=== PATIENT | male | born 1940 | race Caucasian/White ===

== ENCOUNTER → 2017-01-30 | Outpatient (CLI) | payer BC, OTHER ==
[2017-01-30 09:29] LABS: BASOPHILS # (AUTO) 0.02 10*3/UL; BASOPHILS % (AUTO) 0.3 % (0-1); EOSINOPHILS # (AUTO) 0.13 10*3/UL; EOSINOPHILS % (AUTO) 2.1 % (0-8); HEMATOCRIT 48.1 % (42.0-52.0); HEMOGLOBIN 16.1 g/dL (14.0-18.0); LYMPHOCYTES # (AUTO) 1.83 10*3/uL; MEAN CORPUSCULAR HEMOGLOBIN 29.3 PG (27-31); MEAN CORPUSCULAR HGB CONC 33.5 g/dL (33-37); MEAN CORPUSCULAR VOLUME 87.5 FL (80-90); MONOCYTES # (AUTO) 0.45 10*3/UL (0.3-0.8); MONOCYTES % (AUTO) 7.3 % (5-15); NEUTROPHILS # (AUTO) 3.71 10*3/UL; NEUTROPHILS % (AUTO) 60.3 % (50-80)
[2017-01-30 09:30] LABS: CREATININE, URINE 104.2 MG/DL (15-500)
[2017-01-30 09:31] LABS: PLATELET MORPHOLOGY COMMENT NORMAL MORPHOLOGY (NORM); RBC MORPHOLOGY COMMENT NORMAL MORPHOLOGY (NORM); WBC MORPHOLOGY COMMENT NORMAL MORPHOLOGY (NORM)
[2017-01-30 09:43] LABS: BUN/CREATININE RATIO 17.77 (6-20); CALCIUM 8.8 mg/dL (8.7-10.7); CHOL/HDL RATIO 3.86 RATIO (0-4.0); LDL CHOLESTEROL,CALCULATED 99.8 mg/dL
[2017-01-30 09:45] LABS: HEMOGLOBIN A1C 6.99 % (4.2-6.0)
== END ==
LOC: LAB 08:59
PROVIDERS: ATTEND Internal Medicine
DX: E11.9 Type 2 diabetes mellitus without complications (principal); E78.5 Hyperlipidemia, unspecified; K21.9 Gastro-esophageal reflux disease without esophagitis; E66.9 Obesity, unspecified; N52.9 Male erectile dysfunction, unspecified; Z12.5 Encounter for screening for malignant neoplasm of prostate
CPT/HCPCS: 36415; 80053; 80061; 82043; 82550; 83036; 84443; 85025; G0103

== ENCOUNTER → 2017-01-31 | Outpatient (CLI) | payer BC, OTHER ==
--- NOTE | 2017-01-31 16:47 | DI ---
AP PELVIS and BILATERAL HIPS, 01/31/2017 3:38 PM : Clinical History: Left hip pain. Previous Exam: None at this facility. There is no soft tissue abnormality. The bony structures of the pelvis are normal except for acetabul ar over coverage along the superior lateral margin of each acetabula. 2 views of each hip show mild d ysplastic "bumps". There are cystic changes in the left femoral head in the superior lateral margin o f the acetabulum. 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 No s ignificant degenerative arthritic change has developed in the right hip joint. Degenerative changes a re noted in the symphysis pubis. Readin. 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 2. No significant arthritic changes noted in the right hip.
== END ==
LOC: RAD 15:34
PROVIDERS: ATTEND Internal Medicine
DX: M25.552 Pain in left hip (principal); M16.12 Unilateral primary osteoarthritis, left hip; M25.852 Other specified joint disorders, left hip
CPT/HCPCS: 73521

== ENCOUNTER → 2017-04-04 | Outpatient (CLI) | payer BC, OTHER | LOC: LAB 14:23 | PROVIDERS: ATTEND Orthopaedic Surgery Adult Reconstructive Orthopaedic Surgery | DX: Z79.01 Long term (current) use of anticoagulants (principal); M16.12 Unilateral primary osteoarthritis, left hip | CPT/HCPCS: 36415; 85610 ==

== ENCOUNTER → 2017-04-09 | Outpatient (CLI) | payer BC, OTHER | LOC: LAB 13:32 | PROVIDERS: ATTEND Orthopaedic Surgery Adult Reconstructive Orthopaedic Surgery | DX: M16.12 Unilateral primary osteoarthritis, left hip (principal); Z79.01 Long term (current) use of anticoagulants | CPT/HCPCS: 36415; 85610 ==

== ENCOUNTER 2017-04-11 18:41 | Emergency (ER) | payer BC, OTHER ==
[2017-04-11] MEDS ORDERED: MORPHINE SULFATE 2 MG/1 ML IVP ONE (18:49)
[2017-04-11] MEDS ORDERED: ONDANSETRON 4 MG/2 ML VIAL IVP ONE (18:49)
[2017-04-11] MEDS ORDERED: Sodium Chloride 0.9% 1,000 ML PRIMARY IV ONE (18:49)
--- NOTE | 2017-04-11 18:57 | PDOC ---
Fall HPI - General Chief Complaint: Fall Stated Complaint: Fall, hip surgery 4 weeks ago Date Seen by Provider: 04/11/17 Time Seen by Provider: 18:51 Source: POSITIVE: Patient, Spouse Exam Limitations: POSITIVE: No limitations Nurse's Notes Reviewed & Considered: Yes - History of Present Illness Initial Comments: Patient was walking on his driveway when he experienced a fall resulting in abrasions on his face, left hip pain, and left thigh pain. Patient is presently on blood thinners, and had hip replacement surgery for his left hip 4 weeks ago. He is unsure of what made him fall. Patient is a poor historian. Have you received a tetanus shot in the past 10 years?: Unknown Body Location Affected: REPORTS: Head, Lower Extremity (L) Timing: REPORTS: Abrupt Duration: 1/2 hour Severity: Moderate Location of Fall: REPORTS: Home Quality: REPORTS: "Pain" Associated Symptoms: REPORTS: Blow to Head Location of Injuries / Pain: REPORTS: Left, Face, Hip, Thigh Any Prior Injuries Related to Current Complaint?: No - Patient Home Medications Home Medications: Home Medications Ibuprofen 1 tab PO QAM #0 tab 07/27/16 Atorvastatin Calcium [Lipitor] 1 tab PO QHS #90 tab 01/31/17 Metformin HCl [Metformin Hcl Er] 1,000 mg PO QD #180 tab-cap 01/31/17 Venlafaxine HCl [Venlafaxine Hcl Er] 1 cap PO DAILY #90 cap 01/31/17 Warfarin Sodium [Coumadin] 5 mg PO DAILY 04/11/17 - Patient Allergies Allergies/Adverse Reactions: Allergies Allergy/AdvReac Type Severity Reaction Status Date / Time Antihistamines - Alkylamine AdvReac causes Verified 04/11/17 18:56 prostate problems Past Medical History - heen HEENT History: Dentures/Partials Cardiovascular History: Hyperlipidemia Respiratory History: Denies History Gastrointestinal History: GERD Genitourinary History: Denies History Endocrine History: Denies History Musculoskeletal History: Arthritis Neurological History: Denies History Blood Disorders: Denies History Psychiatric History: Depression Cancer History: Denies History Alcohol Use: None Substance Use Type: None ROS - Limitations ROS Limitations: No Limitations Constitution: REPORTS: Denies Symptoms Cardiovascular: REPORTS: Denies Cardiac Symptoms Respiratory: REPORTS: Denies Resp Symptoms Neurological: REPORTS: Denies Neuro Symptoms Gastrointestinal: REPORTS: Denies GI Symptoms Endocrine: REPORTS: Denies Symptoms Musculoskeletal: REPORTS: Joint Pain Genitourinary: REPORTS: Denies Symptoms Eyes: REPORTS: Denies Symptoms ENT: REPORTS: Denies Symptoms Skin: REPORTS: Other (Abrasions on face) Lympathic: REPORTS: Denies Lympathic Symptoms Immunologic: POSITIVE: Denies Symptoms Psychiatric: POSITIVE: Denies Psych Symptoms Fall Physical Exam - General Appearance General Appearance: POSITIVE: Alert, Cooperative, No Acute Distress - HEENT HEENT: POSITIVE: Eyes Inspection Nml, Ears Inspection Nml, Nose Inspection Nml, Oral/Dental Inspect. Nml, Pharynx Inspect. Nml, PERRL, EOMI, Other (Abrasions on right forehead and on nose) - Pupil Size Pupil Size: 5 mm: Bilateral - Neck Neck: POSITIVE: Non Tender, Painless ROM - Respiratory / CVS Respiratory / CVS: POSITIVE: Chest Non Tender, No Ecchymosis, Breath Sounds Normal, No Respiratory Distress, Heart Sounds Normal, Regular Rate/Rhythm Peripheral Pulses: Dorsalis-pedis (R): 3+, Dorsalis-pedis (L): 3+ - Abdomen Abdomen: Soft: (All Quadrants), Normal Bowel Sounds: (All Quadrants), Denies Tenderness: (All Quadrants), No Splenomegaly: (All Quadrants), No Hepatomegaly: (All Quadrants), No Guarding: (All Quadrants), No Rebound: (All Quadrants), No Palpable Pulse: (All Quadrants), No Palpabale Mass: (All Quadrants), No Distention: (All Quadrants), No Rigidity: (All Quadrants) - Neuro / Psych Neuro / Psych: POSITIVE: Oriented X3, custom miller Normal As Tested, Motor Normal, Sensation Normal, Mood Appropriate, Affect Appropriate - Skin Skin: POSITIVE: Intact, Warm, Dry - Back Back: POSITIVE: Normal Inspection, No CVA Tenderness, Non Tender, Painless ROM, No Vertebral Tenderness - Extremities Extremity Assessment: Non-Tender: (RUE), (LUE), (RLE), Normal ROM: (RUE), (LUE) , (RLE), No Edema: (RUE), (LUE), (RLE), Normal Inspection: (RUE), (LUE), (RLE), No Swelling: (RUE), (LUE), (RLE), Pelvis Stable: (ALL), Tender: (LLE), Abnormal ROM: (LLE), Swelling: (LLE), Bony Point Tenderness: (LLE) (over greater trochanter left leg) Joint Exam: POSITIVE: Limited ROM (Secondary to pain), Painful Fall Progress - Results Reviewed by me Xrays/CTs/US Reviewed by me: Yes Discussed with Radiologist: Yes Lab Results Reviewed: Yes Lab Results:: Laboratory Results 04/11/17 Range/Units 18:55 WBC 7.51 (4.8-10.8) 10^3/uL RBC 5.09 (4.70-6.10) 10^6/uL Hgb 14.9 (14.0-18.0) g/dL Hct 44.5 (42.0-52.0) % MCV 87.4 (80-90) FL MCH 29.3 (27-31) PG MCHC 33.5 (33-37) g/dL RDW Std Deviation 42.3 (39-50) fL RDW Coeff of Dao 13.5 (11.5-14.5) % Plt Count 399 H (140-350) 10*3/uL MPV 10.3 (7.4-12.2) FL Immature Gran % (Auto) 0.3 (0-5) % Neut % (Auto) 54.3 (50-80) % Lymph % (Auto) 32.8 (10-50) % Estill % (Auto) 10.7 (5-15) % Eos % (Auto) 1.6 (0-8) % Baso % (Auto) 0.3 (0-1) % Immature Gran # (Auto) 0.02 10*3/UL Neut # (Auto) 4.09 10*3/UL Lymph # (Auto) 2.46 10*3/uL [place] # (Auto) 0.80 (0.3-0.8) 10*3/UL Eos # (Auto) 0.12 10*3/UL Baso # (Auto) 0.02 10*3/UL WBC Morphology Comment Normal morphology (NORM) Plt Morphology Comment Normal morphology (NORM) RBC Morph Comment Normal morphology (NORM) PT 14.7 H (9.7-11.4) secs INR 1.42 (0.00-5.90) N/A Sodium 138 (135-145) meq/L Potassium 4.2 (3.8-5.2) meq/L Chloride 100 (98-112) meq/L Carbon Dioxide 26 (23-33) meq/L Anion Gap 12 (5-20) BUN 22 (7-22) mg/dL Creatinine 0.9 (0.70-1.50) mg/dL Estimated GFR (>60 ml/min/1.73m(2)) BUN/Creatinine Ratio 24.44 H (6-20) Glucose 100 (78-110) mg/dL Calculated Osmolality 288.0 (267-292) mOsm/kg Calcium 8.9 (8.7-10.7) mg/dL Magnesium 1.8 (1.6-2.4) mg/dL Total Bilirubin 0.5 (0.3-1.2) mg/dL AST 35 (21-57) IU/L ALT 35 (21-72) IU/L Alkaline Phosphatase 96 (38-126) IU/L NT-Pro-B Natriuret Pep 132 (0-450) PG/ML Total Protein 7.3 (6.1-8.0) g/dL Albumin 4.0 (3.5-4.8) g/dL Globulin 3.2 (2.50-4.10) g/dL Albumin/Globulin Ratio 1.20 L (1.3-2.0) mg/g - Patient's Progress Pain Medication Addressed: POSITIVE: Yes Status: POSITIVE: Improved MDM / ED Course: Patient was evaluated, blood drawn and sent to the lab for studies, radiographic examinations were taken, IV was started. Findings: INR is 1.4 to, CBC shows a slight anemia with normal white count. Comprehensive metabolic panel is unremarkable. CT scan of his head shows no acute intracranial abnormalities, x-ray of his left hip shows a greater trochanter fracture. Assessment: Hip fracture, secondary to fall. Plan: Discharge home, Percocet for pain, follow-up with his surgeon in [place]. He is to use a walker Freeney ambulation with only touchdown of his foot and no weightbearing. Did discuss patient with Dr. Rebecca Avila and he agrees with this plan. Patient was offered admission for pain control but declined wishing rather to return home. - Consult Counseled: POSITIVE: Patient, Family, RE: Lab Results, RE: Radiology Results, RE : DX, RE: Need for F/U Patient Care Time - Estimated PCT Patient Care Time (In Minutes): 45 Vital Signs - Recent Vital Signs Vital Signs: Vital Signs (Last 8 hours) Temp Pulse Resp BP Pulse Ox 04/11/17 18:41 97.8 F 94 18 144/85 94 - VS Reviewed Vital Signs Reviewed: Yes Discharge Clinical Impression: Fracture of hip Discharge Disposition: Discharged to Home Condition: Stable Patient Instructions Given at Discharge: Hip Fracture (ED)
[2017-04-11 19:10] LABS: BASOPHILS # (AUTO) 0.02 10*3/UL; BASOPHILS % (AUTO) 0.3 % (0-1); EOSINOPHILS # (AUTO) 0.12 10*3/UL; EOSINOPHILS % (AUTO) 1.6 % (0-8); HEMATOCRIT 44.5 % (42.0-52.0); HEMOGLOBIN 14.9 g/dL (14.0-18.0); LYMPHOCYTES # (AUTO) 2.46 10*3/uL; MEAN CORPUSCULAR HEMOGLOBIN 29.3 PG (27-31); MEAN CORPUSCULAR HGB CONC 33.5 g/dL (33-37); MEAN CORPUSCULAR VOLUME 87.4 FL (80-90); MEAN PLATELET VOLUME 10.3 FL (7.4-12.2); MONOCYTES % (AUTO) 10.7 % (5-15); NEUTROPHILS # (AUTO) 4.09 10*3/UL; NEUTROPHILS % (AUTO) 54.3 % (50-80); RED BLOOD COUNT 5.09 10^6/uL (4.70-6.10)
--- NOTE | 2017-04-11 19:13 | EKG ---
[address] [address] Measurements Intervals [place] Rate: 92 P: 39 IA: 153 QRS: -56 QRSD: 126 T: 46 QT: 361 QTc: 411 Interpretive Statements SINUS RHYTHM LEFT ANTERIOR FASCICULAR BLOCK [QRS AXIS <= -45, QR IN I, RS IN II] INTERPRETATION BASED ON A DEFAULT AGE OF 40 YEARS No previous ECG available for comparison Electronically Signed On 04-12-17 13:23:04 MDT by Valdo Alcantara MD [email or web address]
[2017-04-11 19:14] LABS: PLATELET MORPHOLOGY COMMENT NORMAL MORPHOLOGY (NORM); RBC MORPHOLOGY COMMENT NORMAL MORPHOLOGY (NORM); WBC MORPHOLOGY COMMENT NORMAL MORPHOLOGY (NORM)
[2017-04-11 19:20] LABS: BUN/CREATININE RATIO 24.44 (6-20); CALCIUM 8.9 mg/dL (8.7-10.7); MAGNESIUM 1.8 mg/dL (1.6-2.4)
[2017-04-11 19:28] VITALS: RESP 18; TEMP 97.8
[2017-04-11] MEDS ORDERED: oxyCODONE-ACETAMINOPHEN 5-325 TAB PO ONE ×2 (21:30→21:50)
[2017-04-11] MEDS ORDERED: oxyCODONE-ACETAMINOPHEN 5-325 TAB PO SCH (22:00)
--- NOTE | 2017-04-11 22:25 | DI ---
CT HEAD W/O CONTRAST,04/11/2017 6:49 PM: Clinical History: Fall in a patient on blood thinners. Previous Exam: None at this facility. Findings: Multiple helically acquired CT images are obtained through the brain without contrast, and demonstrat e diffuse age-related volume loss. There is no mass, hemorrhage or midline shift. 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 There are a few peripheral vascular calcifications noted. The paranasal sinuses are unremarkable. The intraorbital structures are also unremarkable. Impression: Mild diffuse age-related volume loss otherwise unremarkable.
--- NOTE | 2017-04-11 22:25 | DI ---
XR HIP COMPLETE MIN 2VW U/L,04/11/2017 6:49 PM: Clinical History: Fall with left hip pain. Previous Exam: January 31, 2017 Findings: Multiple views of the left hip are obtained, and demonstrate a fracture of the left greater trochant er. Patient is status post left total hip arthroplasty. There is a cerclage wire around the proximal left femur. The pelvis is unremarkable. There are degenerative changes of the right hip. Degenerative changes of lumbar spine and symphysis pubis are noted. Impression: Slightly displaced fracture of the left greater trochanter.
== END 2017-04-11 22:10 | disposition home or self-care (01) ==
LOC: ER 18:41
DX: S72.092A Other fracture of head and neck of left femur, initial encounter for closed fracture (principal); S00.81XA Abrasion of other part of head, initial encounter; R51 Headache; M79.652 Pain in left thigh; W18.39XA Other fall on same level, initial encounter
CPT/HCPCS: 70450; 73502; 80053; 83735; 83880; 85025; 85610; 93005; 93010; 96374; 96375; 99284; J2270; J2405; J7030

== ENCOUNTER 2018-11-26 05:46 | Inpatient (IN) ==
[2018-11-26] MEDS ORDERED: LIDOCAINE W/ SODIUM BICARB 0.5 ML SYR SUBD ONE (06:00)
[2018-11-26] MEDS ORDERED: Lactated Ringers 1,000 ML PRIMARY IV SCH ×2 (06:00→06:45)
[2018-11-26] MEDS ORDERED: ceFAZolin Inj 2gm (Premix) 2 GM/50 ML BAG IV ONE ×2 (06:00→06:02)
[2018-11-26] MEDS ORDERED: Nasal Sanitizer POPSWAB ampule 3 AMP (Nozin) PREOP DOSE ENOS SCH (06:00)
[2018-11-26] MEDS ORDERED: Lactated Ringers 1,000 ML PRIMARY IV ONE ×2 (06:02→08:29)
[2018-11-26] MEDS ORDERED: LIDOCAINE W/ SODIUM BICARB 0.5 ML SYR ONE (06:02)
[2018-11-26 06:05] LABS: BILIRUBIN,URINE NEGATIVE (NEG); CLARITY,URINE CLEAR (CLEAR); COLOR,URINE YELLOW (Y); GLUCOSE, URINE (UA) NEGATIVE (NEG); OCCULT BLOOD,URINE NEGATIVE (NEG); PROTEIN,URINE NEGATIVE (NEG); UROBILINOGEN,URINE 0.2 EU/dL (0.2)
[2018-11-26 06:08] LABS: URINE SAMPLE TYPE CLEAN CATCH URINE
[2018-11-26] MEDS ORDERED: fentaNYL Inj 100 MCG/2 ML VIAL IVP PRN (06:38)
[2018-11-26] MEDS ORDERED: HYDROmorphone 2 MG/1 ML IVP PRN (06:38)
[2018-11-26] MEDS ORDERED: Ondansetron ODT Tab 8 MG TAB PO PRN ×2 (06:38→12:54)
[2018-11-26] MEDS ORDERED: ONDANSETRON 4 MG/2 ML VIAL IVP PRN ×2 (06:38→12:54)
[2018-11-26] MEDS ORDERED: LIDOCAINE W/ SODIUM BICARB 0.5 ML SYR SUBD PRN (06:38)
[2018-11-26] MEDS ORDERED: ATROPINE SULFATE 0.4 MG/1 ML VIAL IVP PRN (06:38)
--- NOTE | 2018-11-26 06:39 | CRNA.PROGR ---
Anesthesia Recovery Phase I - Post Anesthesia Evaluation Patient's Condition on Arrival in Phase I: Stable Patient's Condition on Arrival in Phase II: Stable Pain Level: 0
--- NOTE | 2018-11-26 06:39 | CRNA.PROGR ---
Post Anesthesia Phase II - Post Anesthesia Phase II Patient Stable and Discharged To: Med/Surg Care Assumed By Surgeon: Westley Oreilly MD Temperature: 97.4 F Pulse Rate: 77 Respiratory Rate: 12 Blood Pressure: 109/58 Pulse Ox: 92 Total Edson Score at Discharge: 9 Post Anesthesia Discharge Criteria Met: Yes
--- NOTE | 2018-11-26 06:39 | CRNA.PROGR ---
Anesthesia Time - Procedure/Recovery Time Start Date: 11/26/18 End Date: 11/26/18 Anesthesia : Time In: 07:38 Anesthesia : Time Out: 11:27 Anesthesia : Total Time: 229 - Block Time Start Date: 11/26/18 End Date: 11/26/18 PreOp Block : Time In: 07:15 PreOp Block : Time Out: 07:24 PreOp Block : Total Time: 9 - Total Anesthesia Time Total Anesthesia Time (minutes): 238 - Other Weight: 112.491 kg Height: 5 ft 11 in Body Mass Index (BMI): 34.5 Physical Status: P2 Anesthesia Type: Spinal Block
[2018-11-26] MEDS ORDERED: fentaNYL Inj 250 MCG/5 ML VIAL ONE (06:55)
[2018-11-26] MEDS ORDERED: MIDAZOLAM 5 MG/1 ML ONE (06:55)
[2018-11-26] MEDS ORDERED: PROPOFOL 10 MG/1 ML (200 MG/20 ML) VIAL IV ONE (06:56)
[2018-11-26] MEDS ORDERED: KETAMINE HCL 100 MG/2 ML SYRINGE IV ONE (07:04)
[2018-11-26] MEDS ORDERED: ROCURONIUM 10 MG/1 ML - 5 ML VIAL IVP ONE (07:05)
[2018-11-26] MEDS ORDERED: DEXAMETHASONE PF 10 MG/1 ML VIAL ONE (07:14)
[2018-11-26] MEDS ORDERED: Mepivacaine Inj 1.5% 450 MG/30 ML VIAL ONE (07:14)
[2018-11-26] MEDS ORDERED: BUPIVACAINE 0.5% W/EPI MPF -30 ML VIAL IV ONE (07:14)
[2018-11-26] MEDS ORDERED: MORPHINE SULFATE/PF 10 MG/10 ML AMPULE ONE (07:19)
[2018-11-26] MEDS ORDERED: TRANEXAMIC ACID 1,000 MG / 10 ML VIAL ONE (07:19)
[2018-11-26] MEDS ORDERED: EPINEPHrine Inj (1:1,000) 1 mg/ml amp ONE (07:19)
[2018-11-26] MEDS ORDERED: BACITRACIN 50,000 UNIT VIAL IRRIG ONE (07:36)
[2018-11-26] MEDS ORDERED: Sodium Chloride 0.9% vial 30 ML ONE ×2 (07:36→08:22)
[2018-11-26] MEDS ORDERED: ePHEDrine Inj 50 MG/ML AMP ONE (07:53)
[2018-11-26] MEDS ORDERED: Ketorolac Inj 30 MG, Morphine Inj (Ortho Cocktail) 5 MG, BUPivacaine Inj 0.25% PF 150 MG SPLASH ONE ×3 (07:54)
[2018-11-26] MEDS ORDERED: Hetastarch 6% + NS 500 ML IV ONE (07:55)
[2018-11-26] MEDS ORDERED: Sodium Chloride 0.9% 500 ML ONE (08:01)
[2018-11-26] MEDS ORDERED: BUPivacaine Liposome/PF (Exparel) Inj 20ml vial INFIL ONE (08:23)
[2018-11-26] MEDS ORDERED: Propofol 1,000 MG/100 ML VIAL IV ONE (08:28)
--- NOTE | 2018-11-26 08:41 | CRNA.PROCE ---
Central Neuraxis Block Placemt - - Safety Measures: Time Out Taken, Site Verified - - Type of Block: Subarachnoid Reason for Block: Surgical Moniters Used During Block: EKG, SPO2, NIBP Sedation Used - Enter Amount Used in Comment Field: Midazolam (mg): Yes (4 mg), Fentanyl (mcg): Yes (50) Positioning: Sitting Skin Prep Used: ChloroPrep (Twice) Draped: Yes Skin Infiltration - Enter Amount Used in Comment Field: 1% Xylocaine (mL): Yes (1.0) Introducer User: None Spinal Needle Used: 22 Juliette 80 mm (1 pass. No parasthesia's) Local Anesthetic - Enter Amount Used in Comment Field: 0.75 % Bupivacaine with Dextrose (ml): Yes (2 ml) Additive Used - Enter Amount Used in Comment Field: Epinephrine 1:1000 Needle Rinse (mL): Yes (needle rinse only) - - Additional Details: Right lateral( right down) post sab placed. RN placed harrington with him lateral. To OR 1 . Anesthesia Time - Other Weight: 112.491 kg Height: 5 ft 11 in Body Mass Index (BMI): 34.5
--- NOTE | 2018-11-26 11:23 | ORTHO.OP ---
Surgery Date: 11/26/18 Preoperative Diagnosis: Osteoarthritis right knee Postoperative Diagnosis: Same Procedure: Right total knee arthroplasty using the Beatriz persona knee with ultra congruent tray Surgeon: Westley Oreilly MD Operator Assistant I Cementing: BARBARA Phillips Anesthesia Provider: Marta Burton CRNA Anesthesia Type: Regional Estimated Blood Loss (mL): 200 Fluids: 1800 mL crystalloid 500 mL Hespan Complications: None. EBL 200 mL. Total tourniquet time 2 hours. Operative Summary: Taken to recovery in stable condition.
--- NOTE | 2018-11-26 12:36 | DI ---
XR KNEE 1 OR 2 VWS 11/26/2018 10:53 AM [place]ORY: [facility] [place] [facility] [place]Post op TKA Comparison: 03/13/2018. Findings: Portable AP and crosstable lateral views of the right knee are submitted. The patient is s tatus post total knee arthroplasty. Longitudinal lucency extends through the distal femoral diaphysis toward the prosthesis. There is mild perihardware lucency along the lateral femoral condyle prosthes is on the AP projection and the distal portion of the tibial prosthesis on the lateral projection; co rrelate with desired surgical outcome. A drain projects over the distribution of the suprapatellar jordan int space. Surgical costa are noted along the anterior skin line. There is no acute fracture or dis location. Atheromatous vascular calcifications are present, most notable of the popliteal region wher e there may be a popliteal artery aneurysm. There is early distal quadriceps enthesopathy. There is g as in the soft tissues, an expected finding in the immediate postoperative timeframe. Metallic densit ies projects over the lower extremity on the frontal projection only. Impression: Status post total knee arthroplasty. Correlate with desired surgical outcome.
[2018-11-26] MEDS ORDERED: BISACODYL 5 MG TABLET PO PRN (12:54)
[2018-11-26] MEDS ORDERED: D5-1/2NS + 20mEq KCL 1,000 ML PRIMARY IV SCH (12:54)
[2018-11-26] MEDS ORDERED: diphenhydrAMINE 25 MG CAPSULE PO PRN (12:54)
[2018-11-26] MEDS ORDERED: ACETAMINOPHEN 325 MG TABLET PO PRN (12:54)
[2018-11-26] MEDS ORDERED: MAG HYDROX/AL HYDROX/SIMETH 30 ML SUSP PO PRN (12:54)
[2018-11-26] MEDS ORDERED: Prochlorperazine Tab 10 MG TAB PO PRN (12:54)
[2018-11-26] MEDS ORDERED: BISACODYL 10 MG SUPPOSITORY RECTAL PRN (12:54)
[2018-11-26] MEDS ORDERED: ROSUVASTATIN CALCIUM 5 MG PO SCH (12:54)
[2018-11-26] MEDS ORDERED: MORPHINE SULFATE 2 MG/1 ML IVP PRN (12:54)
[2018-11-26] MEDS ORDERED: CALCIUM CARBONATE 500 MG (TUMS) CHEWABLE TABLET PO PRN (12:54)
[2018-11-26] MEDS ORDERED: MORPHINE SULFATE 2 MG/1 ML IV PRN (13:35)
[2018-11-26] MEDS ORDERED: MORPHINE SULFATE 4 MG/1 ML IV PRN (13:36)
[2018-11-26] MEDS ORDERED: MORPHINE SULFATE 10 MG/1 ML IV PRN (13:36)
[2018-11-26] MEDS: oxyCODONE/APAP 7.5/325 Tab 1 TAB TAB PO PRN ×3 (13:55→21:41)
--- NOTE | 2018-11-26 14:38 | CONSULT ---
Consult Note - Consult Reason for Consult: PostOp Consulation : Ortho Primary Care Provider: Ceferino Kapoor MD HPI - History of Present Illness History of Present Illness: This very nice 78-year-old gentleman with history of diabetes and depression had a right total knee replacement elective surgery hospitalists service was consult did for medical management of the diabetes. Patient has no chest pain nausea vomiting and is doing well postop and his room with his son and Past Medical History Medical History: Depression, diabetes Tobacco Use: Former Smoker In the Past 12 Months, Have Used or Abuse Any of the Following Substance: None Alcohol Use: Rarely Review of Systems - Review of Systems All Systems: Reviewed & No Additional Complaints Except as Stated - Cardiovascular Cardiovascular: DENIES: Negative System Review, Chest Pain, Edema, Syncope, Palpitations, Orthopnea, Paroxysmal Nocturnal Dyspnea, Other, See HPI - Gastrointestinal Gastrointestinal / Abdominal: DENIES: Negative System Review, Nausea, Vomiting, Diarrhea, Constipation, Abdominal Pain, Bloody Stool, Poor Appetite, Heartburn, Regurgitation, Bloating, Lactose Intolerance, Melena, Bright Red Blood per Rectum, Other, See HPI - Genitourinary Genitourinary: DENIES: Negative System Review, Pain, Burning, Hematuria, Incontinence, Urgency, Hesitant Stream, Decreased Stream, Nocutria, Discharge, Sexual Dysfunction, Other, See HPI Medication / Allergies Home Medications: Home Medications Medication Instructions Recorded Confirmed Type metformin ER 500 mg 24 hr 1,000 mg PO QDAY #180 tab-cap 02/08/18 11/25/18 Rx tablet,extended release venlafaxine ER 75 mg 75 mg PO QDAY #90 cap 09/18/18 11/25/18 Rx capsule,extended release 24 hr [id number] 1 tab PO DAILY tab 09/26/18 11/25/18 History 750 mg-100 mg-125 mg-1.65 mg tablet rosuvastatin 5 mg tablet 5 mg PO QDAY #90 tab 09/26/18 11/25/18 Rx Allergies/Adverse Reactions: Allergies Allergy/AdvReac Type Severity Reaction Status Date / Time Antihistamines - Alkylamine AdvReac causes Verified 11/25/18 15:03 prostate problems Exam - Vitals Vital Signs: Vital Signs Temperature 97.5 F Temperature Source Temporal Artery Scan Pulse Rate 80 Respiratory Rate 12 Blood Pressure [Left Arm] 116/80 Blood Pressure 106/76 Pulse Ox 93 Oxygen Flow Rate 3 Oxygen Delivery Method Nasal Cannula Height 5 ft 11 in Weight 248 lb - General General Appearance: No Acute Distress, Cooperative - Head Head Exam: Normal Inspection, Normocephalic, Atraumatic - Eye Eye Exam: POSITIVE: Normal Appearance, PERRL, EOMI, No Scleral Icterus - Neck Neck Exam: Normal Inspection, Full ROM, No Tenderness, No Lymphadenopathy, No Thyromegaly, JVP is not Raised - Respiratory Respiratory Exam: POSITIVE: Clear to Auscultation - Bilaterally, Breathing Non Labored, Normal To Percussion, Normal to Percussion and Palpation - Cardiovascular Cardiovascular Exam: POSITIVE: RRR, No Murmur, No Clicks, No Gallops, No Rubs, PMI Non-Displaced - GI/Abdominal GI/Abdominal Exam: POSITIVE: Normal Bowel Sounds, Non Tender, Non Distended, Soft, No Masses, No Hepatomegaly, No Splenomegaly, No Organomegaly - Extremities Extremities Exam: POSITIVE: No Clubbing Present, No Edema Present Assessment and Plan - Patient Problems (1) Status post right knee replacement Current Visit: Yes Status: Acute Comment: Deferred Dr. Oreilly for PT OT orders anticoagulation and pain management Code(s): Z96.651 - Presence of right artificial knee joint (2) Diabetes Current Visit: Yes Status: Acute Comment: Hold metformin start sliding scale Code(s): E11.9 - Type 2 diabetes mellitus without complications (3) Depression Current Visit: No Status: Chronic Comment: Continue home meds (4) Hyperlipidemia Current Visit: No Status: Chronic Onset Date: 04/08/14 Code(s): E78.5 - Hy perlipidemia, unspecified (5) Obesity (BMI 30-39.9) Current Visit: No Status: Chronic Onset Date: 01/24/16 Code(s): E66.9 - Obesity, unspecified
[2018-11-26] MEDS: ceFAZolin Inj 2gm (Premix) 2 GM/50 ML BAG IV SCH ×2 (16:05→23:50)
[2018-11-26] MEDS: 1/2NS + 20mEq KCL 1,000 ML PRIMARY IV SCH (19:18)
[2018-11-26] MEDS: ATORVASTATIN 20 MG TABLET PO SCH (21:41)
[2018-11-26] MEDS: DOCUSATE 100 MG CAPSULE PO SCH (21:41)
[2018-11-27] MEDS: oxyCODONE/APAP 7.5/325 Tab 1 TAB TAB PO PRN ×4 (01:42→13:15)
[2018-11-27 04:24] LABS: Hematocrit [HCT] 39.8 % (42.0-52.0); Hemoglobin [HGB] 12.9 g/dL (14.0-18.0); MEAN CORPUSCULAR HEMOGLOBIN 28.9 PG (27-31); MEAN CORPUSCULAR HGB CONC 32.4 g/dL (33-37); RED BLOOD COUNT 4.47 10^6/uL (4.70-6.10)
[2018-11-27 04:53] LABS: BLOOD UREA NITROGEN 18 mg/dL (7-22)
[2018-11-27] MEDS: 1/2NS + 20mEq KCL 1,000 ML PRIMARY IV SCH ×2 (04:59→10:16)
--- NOTE | 2018-11-27 08:51 | ORTHO.PROG ---
Last Taken Vital Signs: Vital Signs - Last Taken Temperature 96.8 F 11/27/18 07:15 Pulse Rate 93 11/27/18 07:15 Respiratory Rate 20 11/27/18 07:15 Blood Pressure 136/81 11/27/18 07:15 Pulse Ox 91 11/27/18 07:15 Subjective: Patient sitting up in bed with at his side. Doing quite well. Use the CPM last night. Not reporting much pain. Objective: Vital signs stable patient afebrile. Right knee drain removed. Dressing changed. Incision clean and dry. Minimal swelling. Full extension and flexion to 90. Able to lift his leg off the bed. Hemoglobin and hematocrit 12.9 and 39 Assessment: Impression: Doing excellent postop day 1 from right total knee. Plan: Plan: Is to start physical therapy today. We'll put him on an aspirin a day. SCDs. I changed his dressing today and applied a BRYAN hose to the right leg. We'll take out his Deleon catheter.
[2018-11-27] MEDS: VENLAFAXINE XR 75 MG CAP PO SCH (09:05)
[2018-11-27] MEDS: metFORMIN ER 500 MG TABLET PO SCH (09:05)
[2018-11-27] MEDS: DOCUSATE 100 MG CAPSULE PO SCH ×2 (09:05→20:28)
--- NOTE | 2018-11-27 09:35 | PTI REPORT ---
Thank you for the referral of Ceferino Merchant. He was seen on 11/26/18 for an inpatient evaluation status post total knee arthroplasty. SUBJECTIVE: The patient is a 78-year-old male who underwent a right total knee replacement earlier today. The patient states he is doing well and he is starting to have some tingling into his right lower extremity and getting more feeling back as he did have a spinal block. The patient is able to lift his right and left lower extremities up and down when laying supine in bed. The patient reports that he lives here in [place] with his . He states that they have three steps into the home with a bilateral railing. Once in the home, everything is on one level. The patient states that prior to his surgery he was using a single point cane at times due to his right knee giving out. He reports that he was independent with ADLs. The patient reports previous history of a left total hip replacement and states that shortly after he did have his replacement he did have a fall at that time but otherwise is doing well. PAST MEDICAL HISTORY: Past medical history can be found in the patient's medical record. OBJECTIVE FINDINGS: General observations: The patient was alert and oriented to setting upon PT arrival. The patient was supine in bed with head of bed elevated and a CPM on the right. The patient's blood pressure was 115/85. The patient's oxygen saturation was 94% on two liters of oxygen. Bed mobility: The CPM was removed and the patient was able to move from supine to seated edge of bed with min assist x1. Once seated edge of bed, the patient denied any lightheadedness or dizziness. His blood pressure was 130/78. The patient demonstrated good seated edge of bed balance. The patient transferred from seated to supine in bed with min assist x1 for the right lower extremity. Once in bed the patient was able to scoot himself up a little bit. Transfers: The patient was instructed in a sit to stand transfer which he was able to complete with contact guard assist x1 for safety and verbal cueing. Once in a standing position, the patient required hand hold assist x2 in the walker. His blood pressure was 135/75. The patient denied any lightheadedness or dizziness and was able to stand for a couple of minutes. Ambulation: After standing, the patient was directed in side stepping to move up toward the head of the bed in order to transfer safely back into the bed. Due to still having some numbness to the right lower extremity we did not attempt any further walking. The patient was also hooked up to an IV. ASSESSMENT: The patient has good rehab potential. Problem List: Patient is status post right total knee arthroplasty Pain in the right knee Restricted range of motion Weakness Short-Term Goals: To be met by discharge from inpatient: Patient will be able to transfer from bed to stand safely and independently. Patient will be able to ambulate at least 150 feet with walker safely and independently. Patient will be able to ascend and descend 5 steps safely and independently with use of walker. Long-Term Goals: To be met following discharge from inpatient: Patient will be seen by outpatient physical therapy for post op knee care. TREATMENT PLAN: Patient will be seen B.I.D during the week and one time per day over the weekend as an inpatient to address the above goals and objectives. INITIAL TREATMENT: Treatment today consisted of the initial evaluation followed by one unit of functional activity. Following treatment the CPM was placed back on the patient's right lower extremity. Bed alarm was set and call light was placed within reach. [facility]
--- NOTE | 2018-11-27 09:48 | PDOC(PROG) ---
Interval History: Doing great no chest pain nausea vomiting Objective : Data - Labs CBC and BMP: 11/27/18 04:16 11/27/18 04:16 Objective : Exam - General General Appearance: No Acute Distress, Cooperative - Respiratory Respiratory Exam: Clear to Auscultation - Bilaterally, Breathing Non Labored, Normal To Percussion, Normal to Percussion and Palpation - Cardiovascular Cardiovascular Exam: RRR, No Murmur, No Clicks, No Gallops, No Rubs, PMI Non- Displaced - Extremities Extremities Exam: No Clubbing Present, No Edema Present Assessment and Plan - Patient Problems (1) Status post right knee replacement Current Visit: Yes Status: Acute Comment: As per PT OT and orthopedic surgery stable from the medical standpoint okay to discharge home whenever decided by Dr. Oreilly and physical therapy no change in medication labs reviewed Code(s): Z96.651 - Presence of right artificial knee joint (2) Diabetes Current Visit: Yes Status: Acute Code(s): E11.9 - Type 2 diabetes mellitus without complications (3) Depression Current Visit: No Status: Chronic (4) Hyperlipidemia Current Visit: No Status: Chronic Onset Date: 04/08/14 Code(s): E78.5 - Hyperlipidemia, unspecified (5) Obesity (BMI 30-39.9) Current Visit: No Status: Chronic Onset Date: 01/24/16 Code(s): E66.9 - Obesity, unspecified
[2018-11-27] MEDS: ASPIRIN 81 MG (BABY) CHEWABLE TABLET PO SCH (11:42)
[2018-11-27] MEDS ORDERED: KETOROLAC 15 MG/1 ML VIAL IVP PRN (14:25)
[2018-11-27] MEDS ORDERED: Acetaminophen 1000mg Inj 1,000 MG/100 ML VIAL IV PRN (14:28)
[2018-11-27] MEDS: Insulin Lispro Flexpen 300 UNIT/3 ML INSULN.PEN SUBCUT SCH ×2 (16:27→20:28)
--- NOTE | 2018-11-27 16:45 | PT.PROG ---
Progress Note Progress Note: S. Patient stated that he is feeling a little better this afternoon, however is having a hard time keeping anything down. O. Patient ambulated 60 feet in the [place] and back to his room where he was left in bed with CPM (-4 to 90 degrees) and Ice man. A. Patient vomited twice during ambulation however was able to ambulate with min assist. Patient tolerated CPM well. He would continue to benefit from skilled therapy to increase strength, and mobility at this time. P. Continue POC.
--- NOTE | 2018-11-27 17:01 | CRNA.PROGR ---
Anesthesia Note - Progress Notes Anesthesia Progress Note: Sitting up in bed visiting with family at the time of visit. Discussed his anesthetic course and he has no questions or concerns regarding his anesthetic care. He has been having some trouble with nausea since beginning his PO pain medications. This is being addressed by the hospitalist. VS Temperature 98.8 F 11/27/18 16:26 Temperature Source Temporal Artery Scan 11/27/18 16:26 Pulse Rate 89 11/27/18 16:26 Pulse Strength Normal 11/27/18 07:00 Respiratory Rate 18 11/27/18 16:26 Blood Pressure 140/75 11/27/18 16:26 Blood Pressure Mean 96 11/27/18 16:26 Pulse Ox 89 11/27/18 16:26 Oxygen Delivery Method Room Air 11/27/18 16:26 Oxygen Flow Rate .5 11/27/18 11:13 Room Air Challenge 84 11/27/18 04:36 Weight 109.406 kg 11/27/18 12:53 Height 5 ft 11 in 11/26/18 12:58 Body Mass Index (BMI) 34.5 11/26/18 12:58 Laboratory Results 11/26/18 11/27/18 11/27/18 17:00 04:16 04:16 WBC 8.64 RBC 4.47 L Hgb 12.9 L Hct 39.8 L MCV 89.0 MCH 28.9 MCHC 32.4 L RDW Std Deviation 43.1 RDW Coeff of Dao 13.5 Plt Count 192 MPV 10.0 Sodium 136 Potassium 4.7 Chloride 100 Carbon Dioxide 31 Anion Gap 5 BUN 18 Creatinine 1.0 BUN/Creatinine Ratio 18.00 Glucose 135 H Calculated Osmolality 285.0 Calcium 8.6 L Magnesium 1.8 Troponin I 0.014
[2018-11-27] MEDS: HYDROcodone-APAP 7.5 MG-325 MG TABLET PO PRN (17:47)
[2018-11-27] MEDS: ATORVASTATIN 20 MG TABLET PO SCH (20:28)
[2018-11-28 04:47] LABS: Hematocrit [HCT] 37.6 % (42.0-52.0); Hemoglobin [HGB] 12.5 g/dL (14.0-18.0); MEAN CORPUSCULAR HEMOGLOBIN 29.1 PG (27-31); MEAN CORPUSCULAR HGB CONC 33.2 g/dL (33-37); MEAN CORPUSCULAR VOLUME 87.6 FL (80-90); MEAN PLATELET VOLUME 10.6 FL (7.4-12.2); RED BLOOD COUNT 4.29 10^6/uL (4.70-6.10)
[2018-11-28 04:57] LABS: BLOOD UREA NITROGEN 16 mg/dL (7-22); BUN/CREATININE RATIO 17.77 (6-20)
[2018-11-28] MEDS: Insulin Lispro Flexpen 300 UNIT/3 ML INSULN.PEN SUBCUT SCH ×4 (06:50→20:38)
[2018-11-28] MEDS: HYDROcodone-APAP 7.5 MG-325 MG TABLET PO PRN ×3 (06:50→18:34)
[2018-11-28] MEDS: DOCUSATE 100 MG CAPSULE PO SCH ×2 (08:12→20:37)
[2018-11-28] MEDS: ASPIRIN 81 MG (BABY) CHEWABLE TABLET PO SCH (08:12)
[2018-11-28] MEDS: VENLAFAXINE XR 75 MG CAP PO SCH (08:12)
[2018-11-28] MEDS: metFORMIN ER 500 MG TABLET PO SCH (08:13)
--- NOTE | 2018-11-28 09:04 | ORTHO.PROG ---
Last Taken Vital Signs: Vital Signs - Last Taken Temperature 97.8 F 11/28/18 06:48 Pulse Rate 88 11/28/18 07:03 Respiratory Rate 18 11/28/18 06:48 Blood Pressure 125/64 11/28/18 06:48 Pulse Ox 96 11/28/18 06:48 Subjective: I saw patient in physical therapy this morning. He is doing quite well. Had some issues with pain last evening and also nausea. The Percocet was switched to [place]. He is not having any nausea this morning his pain is actually quite well controlled. He already did stairs and is anxious to go home Objective: Vital signs stable patient afebrile. Right knee incision has dressing in place. No drainage. Minimal effusion. Range of motion shows almost complete extension and 96 of flexion. Assessment: Impression: Doing quite well postop day 2 from right total knee. Plan: Plan: Is to continue physical therapy. Will likely discharge patient tomorrow if he continues to do well.
--- NOTE | 2018-11-28 10:08 | PDOC(PROG) ---
Interval History: Patient is doing great today no nausea no vomiting pain is controlled Objective : Data - Labs CBC and BMP: 11/28/18 04:02 11/28/18 04:02 Objective : Exam - Respiratory Respiratory Exam: Clear to Auscultation - Bilaterally, Breathing Non Labored, Normal To Percussion, Normal to Percussion and Palpation - Cardiovascular Cardiovascular Exam: RRR, No Murmur, No Clicks, No Gallops, No Rubs, PMI Non- Displaced - GI/Abdominal GI/Abdominal Exam: Normal Bowel Sounds, Non Tender, Non Distended, Soft, No Masses, No Hepatomegaly, No Splenomegaly, No Organomegaly Assessment and Plan - Patient Problems (1) Status post right knee replacement Current Visit: Yes Status: Acute Comment: Continue PT OT pain control and anticoagulation as per Dr. Oreilly most likely home tomorrow if continues to do well Code(s): Z96.651 - Presence of right artificial knee joint (2) Diabetes Current Visit: Yes Status: Acute Comment: NT metformin and sliding scale Code(s): E11.9 - Type 2 diabetes mellitus without complications (3) Depression Current Visit: No Status: Chronic Comment: Stable at present time (4) Hyperlipidemia Current Visit: No Status: Chronic Onset Date: 04/08/14 Code(s): E78.5 - Hyperlipidemia, unspecified (5) Obesity (BMI 30-39.9) Current Visit: No Status: Chronic Onset Date: 01/24/16 Code(s): E66.9 - Obesity, unspecified
--- NOTE | 2018-11-28 10:38 | OTI REPORT ---
Thank you for the referral of Ceferino Merchant. He was seen on 11/27/18 for an occupational therapy inpatient evaluation status post right total knee arthroplasty. SUBJECTIVE: The patient is a 78-year-old male who underwent a right total knee arthroplasty yesterday by Dr. Oreilly. The patient currently reports a pain level of 5/10 on the verbal analog scale (0=no pain, 10=worst pain). The patient's is present for OT evaluation. The patient reports that at prior level of function he was using a cane to assist with walking at times, but not 100% of the time. The patient has a history of a left total hip arthroplasty and a cataract surgery. The patient reports that he has three steps to enter their home with one side rail on one side. Once inside, there are no stairs. The patient has a walk-in shower with a built in shower seat. At prior level of function the patient was independent with all ADLs to include dressing, showering, and walking with no difficulty. The patient is retired. He was driving at prior level of function. PAST MEDICAL HISTORY: Past medical history can be found in the patient's medical record. OBJECTIVE FINDINGS: General observations: The patient was sitting upright in chair upon the therapist's arrival. The patient was educated to keep his knee elevated to assist with swelling. Range of motion: The patient demonstrated upper extremity range of motion within functional limits for the shoulder, elbow, hand, and wrist. Strength: Upper extremity strength is 5/5 for the shoulder, elbow, hand, and wrist. Transfers: The patient demonstrated the ability to perform a sit to stand transfer with contact guard assist for safety. Ambulation: The patient does have a walker at home that he used with his total hip surgery. The patient has a standard walker as well as one with wheels. The patient ambulated x10 feet to the bathroom with contact guard assist for safety where he performed toileting task with contact guard assist for safety. The patient did report some nausea when he was up walking; however, he did not vomit at this time. The patient did vomit earlier today when up walking secondary to pain medication per his report. Activities of daily living: The patient was issued a marketing support coordinator, a shoe horn, a sock aide, and a bath sponge per his and his 's request. The patient did not perform dressing at this time as he was already dressed. We will assess dressing tomorrow morning. ASSESSMENT: Problem List: Decreased ability to complete upper and lower extremity dressing Decreased ability to complete ADLs Decreased standing activity tolerance Occupational Therapy Goals: To be met by discharge from inpatient: Patient will be able to complete lower extremity dressing tasks with modified independence with use of adaptive equipment. Patient will demonstrate the ability to complete upper extremity dressing tasks with set up assistance. Patient will demonstrate the ability to complete a seated toileting task with contact guard assist for safety. Patient will demonstrate increased activity tolerance in order to stand x5-8 minutes at the sink to complete standing grooming tasks with no losses of balance with one hand on the countertop for support. TREATMENT PLAN: Patient will be seen B.I.D during the week and one time per day over the weekend as an inpatient to address the above goals and objectives. INITIAL TREATMENT: Treatment today consisted of the initial evaluation followed by ambulation to and from the bathroom with contact guard assist for safety as well as functional toileting task. Following OT evaluation, the patient was left in his recliner chair with alarms in place and call light within reach. [facility]
--- NOTE | 2018-11-28 14:45 | PT.PROG ---
Progress Note Progress Note: S. Patient stated that he is feeling better than yesterday. O. Patient ambulated 90 feet to the stairwell where he ascended and descended 5 stairs, then ambulated 90 feet to the therapy gym where he performed exercises in the form of; heel slides, quad sets, glute sets, ankle pumps, short arc quads, heel toe raises, hip abduction/adduction, straight leg raises, seated long arc quads, all x 10 with red thera bands, Patient then performed sit to stands x 10 Patient used the nu-step x 10 minutes then ambulated 175 feet to his room and was left with call light and alarm. A. Patient tolerated therapy well, he was able to perform all exercises with no increase in pain or problems. Patient continues to require contact guard assist with transfers and ambulation, he would continue to benefit from 1-2 more sessions of therapy to increase strength, and mobility at this time. He was able to achieve 98 degrees of flexion this morning. P. Continue POC.
--- NOTE | 2018-11-28 14:46 | PT.PROG ---
Progress Note Progress Note: S. Patient stated that he is feeling good this afternoon. O. Patient ambulated 175 to the therapy gym where he performed exercises in the form of; heel slides, quad sets, glute sets, ankle pumps, short arc quads, heel toe raises, hip abduction/adduction, straight leg raises, seated long arc quads, all x 10 with red thera bands, Patient then performed sit to stands x 10 Patient used the nu-step x 10 minutes then ambulated 175 feet to his room and was left with call light and alarm. A. Patient tolerated therapy well, he was able to perform all exercises with no increase in pain or problems. Patient continues to require contact guard assist with transfers and ambulation, he would continue to benefit from 1-2 more sessions of therapy to increase strength, and mobility at this time. He was able to achieve 100 degrees of flexion this morning. P. Continue POC.
[2018-11-28] MEDS: ATORVASTATIN 20 MG TABLET PO SCH (20:37)
[2018-11-29 06:36] VITALS: BP 129/65; RESP 24; TEMP 98.9; O2SAT 94
--- NOTE | 2018-11-29 07:32 | ORTHO.PROG ---
Last Taken Vital Signs: Vital Signs - Last Taken Temperature 98.9 F 11/29/18 06:34 Pulse Rate 87 11/29/18 06:34 Respiratory Rate 24 11/29/18 06:34 Blood Pressure 129/65 11/29/18 06:34 Pulse Ox 94 11/29/18 06:34 Subjective: Patient sitting on the edge of bed eating a cinnamon roll. States he is doing well. Only took for pain pills yesterday. Did great in physical therapy. Was able to bend to 100+ degrees Objective: Vital signs stable patient afebrile. Right knee incision clean and dry. Mild effusion. Flexion to 90+. Able to do a straight leg raise. Assessment: Impression: Doing excellent postop day 3 from right total knee. Plan: Plan: Is to discharge him after his morning physical therapy. Will send him out on pain medication and it baby aspirin daily. Follow-up as scheduled a week from Sunday.
[2018-11-29] MEDS: HYDROcodone-APAP 7.5 MG-325 MG TABLET PO PRN (08:10)
[2018-11-29] MEDS: Insulin Lispro Flexpen 300 UNIT/3 ML INSULN.PEN SUBCUT SCH (08:14)
[2018-11-29] MEDS: ASPIRIN 81 MG (BABY) CHEWABLE TABLET PO SCH (08:15)
[2018-11-29] MEDS: metFORMIN ER 500 MG TABLET PO SCH (08:15)
[2018-11-29] MEDS: DOCUSATE 100 MG CAPSULE PO SCH (08:15)
[2018-11-29] MEDS: VENLAFAXINE XR 75 MG CAP PO SCH (08:15)
--- NOTE | 2018-11-29 09:26 | DCSUMMARY ---
Hospitalization Summary Hospital Course: Final Discharge Diagnosis: Current Visit Problems Problem Status Onset Code Diabetes Acute E11.9 Status post right knee replacement Acute Z96.651 Diagnostic Data, Laboratory Data, and Procedures of Signifigance: CBC and BMP 11/28/18 04:02 11/28/18 04:02 History and Physical pertinent to Admission: Course of Hospitalization: This very nice 78-year-old gentleman who underwent status post right knee replacement. He did well with all with his other medical issues for details on his right knee operation please see Dr. Westley Oreilly's operative note and progress notes patient is doing great no chest pain nausea or vomiting discharge was initiated by Dr. Oreilly and anticoagulation and pain management was taking care of by Dr. Oreilly. He will follow-up with his primary care physician Dr. Oreilly as needed patient has no complaints On the date of discharge, the patient was examined: Gen.: [No acute distress, alert, nontoxic] Heart: [Regular rate and rhythm, no murmurs, clicks, gallops, or rubs] Lungs: [Clear to auscultation bilaterally, breathing is nonlabored] Abdomen/GI: [Normal tones on auscultation, soft, nontender, nondistended] Musculoskeletal/extremities: [No clubbing, cyanosis, or edema] Vitals reviewed and are listed below Vital Signs (24 hrs) 11/28/18 11:46 11/28/18 17:00 11/28/18 21:00 Temperature 97.6 F 97.7 F 98.5 F Pulse Rate [Pulse Oximeter] 18 L 100 118 H Respiratory Rate 18 20 Blood Pressure [Left Arm] 130/71 132/65 132/59 Pulse Ox 92 90 90 11/29/18 00:21 11/29/18 00:22 11/29/18 04:33 Temperature 98.1 F 98.1 F 97.6 F Pulse Rate [Pulse Oximeter] 112 H 112 H 108 H Respiratory Rate 20 20 20 Blood Pressure [Left Arm] 146/76 146/76 144/63 Pulse Ox 92 92 91 11/29/18 05:00 11/29/18 06:34 11/29/18 07:00 Temperature 98.9 F Pulse Rate [Pulse Oximeter] 87 87 Respiratory Rate 24 Blood Pressure [Left Arm] 129/65 Pulse Ox 92 94 Assessment and Plan: 1. As per discharge assessments above 2. Disposition: Home 3. Condition on discharge, stable and improved. 4. Diet: regular diet 5. Activities: resume normal activities 6. Follow-Up: 1. [PCP] as needed 2. Dr. Oreilly as needed appointment made by him 7. Medications at the Time of Discharge: Home Medications Medication Instructions Recorded Confirmed Type metformin ER 500 mg 24 hr 1,000 mg PO QDAY #180 tab-cap 02/08/18 11/25/18 Rx tablet,extended release venlafaxine ER 75 mg 75 mg PO QDAY #90 cap 09/18/18 11/25/18 Rx capsule,extended release 24 hr [id number] 1 tab PO DAILY tab 09/26/18 11/25/18 History 750 mg-100 mg-125 mg-1.65 mg tablet rosuvastatin 5 mg tablet 5 mg PO QDAY #90 tab 09/26/18 11/25/18 Rx Aspirin Chewable Tab 81 mg PO DAILY #30 tab 11/29/18 Rx Docusate Sodium [Colace] 100 mg PO BID #30 cap 11/29/18 Rx HYDROcodone/APAP 7.5/325 Tab 1 - 2 tab PO Q4H PRN #45 tab 11/29/18 Rx [Geraldine 7.5/325 Tab] 8. Time, care, counseling and coordination of care for this discharge is greater than 30 minutes. Exam - Vitals Vital Signs: Vital Signs Temperature 98.9 F Temperature Source Temporal Artery Scan Pulse Rate [Pulse Oximeter] 87 Pulse Rate 80 Respiratory Rate 24 Blood Pressure [Left Arm] 129/65 Blood Pressure 106/76 Pulse Ox 94 Oxygen Flow Rate 1 Oxygen Delivery Method Room Air Height 5 ft 11 in Weight 249 lb Patient Problems - Patient Problem List (1) Status post right knee replacement Current Visit: Yes Status: Acute Code(s): Z96.651 - Presence of right artificial knee joint Category: Surgical (2) Diabetes Current Visit: Yes Status: Acute Code(s): E11.9 - Type 2 diabetes mellitus without complications Category: Medical (3) Depression Current Visit: No Status: Chronic Category: Medical (4) Hyperlipidemia Current Visit: No Status: Chronic Onset Date: 04/08/14 Code(s): E78.5 - Hyperlipidemia, unspecified Category: Medical (5) Obesity (BMI 30-39.9) Current Visit: No Status: Chronic Onset Date: 01/24/16 Code(s): E66.9 - Obesity, unspecified Category: Medical
--- NOTE | 2018-11-29 10:49 | OT AM DAY ---
Diagnosis : Right Total Knee Arthroplasty AM - Occupational Therapy S: The patient states he is going to go home. 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 They do have a higher toilet seat as well as a shower chair that is built into their shower. O: Today the patient was able to come from supine to sit with increased time. While sitting edge of bed, he was not able to dress self without adaptive devices. The patient was able to doff socks using the skin installer and don socks using the sock aide. The patient required contact guard assist for sit to stand transfer. The patient does demonstrate some slight impulsivity and needed cues to not reach up on the walker but to push up off of the bed. The patient completed a toilet transfer with contact guard assist and cues to reach the handles of the toilet. The patient was able to stand at sink and complete hygiene activities x3 minutes with stand by assist. A: The patient was able to dress self with use of adaptive devices. The patient and his were educated in slowing down a little bit with the walker. After cues the patient was able to do so and demonstrate safety. P: Continue seeing patient BID during the week and one time per day over the weekend until discharge. [facility]
--- NOTE | 2018-11-29 11:22 | OT.PROG ---
Progress Note Progress Note: S: pt stated that he was feeling good and ready for therapy. O: tx consisted of bed mobility from supine to EOB with SBA for safety, functional ambulation x150' with standard walker and CGA for safety, green UE RTB exercises in all planes of motion x 20 each, 3# UE biceps, chest press and shoulder press x 20 each. A: pt tolerated session well and have improved in overall functional ability and ADL performance. P: continue POC
--- NOTE | 2018-11-29 12:22 | PT.PROG ---
Progress Note Progress Note: S. Patient stated that he is feeling good and is ready to go home. O. Patient ambulated 175 feet to the therapy gym where he performed heel slides, quad sets, ankle pumps, short arc quads, sit to stands all x 10 then used the nu-step x 15. Patient was stretched then ambulated 175 feet back to his room where he was left with alarm and call light. A. Patient tolerated therapy well, he was able to achieve 105 degrees of flexion this morning. He would benefit from outpatient therapy at this time. P. Patient has met all goals.
== END 2018-11-29 10:35 | disposition home or self-care (01) | DRG 470 ==
LOC: OPS 05:46 → MED/SURG 12:44
PROVIDERS: ADMIT Orthopaedic Surgery; ATTEND Orthopaedic Surgery